=== PATIENT | female | born 1970 | race Caucasian/White ===

== ENCOUNTER 2017-06-08 23:57 | Emergency (ER) | payer BC ==
[2017-06-09] MEDS ORDERED: SODIUM CHLORIDE 0.9% 500 ML IV STA (00:08)
--- NOTE | 2017-06-09 00:17 | ED ---
General Adult HPI - General Source: patient, RN notes reviewed, old records reviewed Mode of arrival: ambulatory Limitations: no limitations <Paulie Sheffield - Last Filed: 06/09/17 00:15> <Gerardo Sanchez - Last Filed: 06/09/17 02:30> - General Chief complaint: Arrhythmia/Palpitations Stated complaint: Palpitations Time Seen by Provider: 06/09/17 00:08 - History of Present Illness Initial comments: This is a 38-year-old female to the ER for evaluation. Patient comes in for evaluation of palpitations fast heart rate. Patient has no significant history of heart disease or heart arrhythmia. No recent change in medications. No drugs or alcohol. No fevers. Patient states she recently did have a root canal is taking amoxicillin for dental infection. Patient states her heart rate Of 150s earlier today. Denies any symptoms of anxiety or stress. No chest pain or shortness of breath. Patient states that she was driving to emergency room she felt like her symptoms improve (Paulie Sheffield) - Related Data Home Medications Medication Instructions Recorded Confirmed Amoxicillin 500 mg PO Q8H 06/09/17 06/09/17 Ibuprofen [Motrin] 600 mg PO Q6HR PRN 06/09/17 06/09/17 Allergies Allergy/AdvReac Type Severity Reaction Status Date / Time sulfamethoxazole Allergy Rash/Hives Verified 06/09/17 00:04 [From Bactrim] trimethoprim [From Bactrim] Allergy Rash/Hives Verified 06/09/17 00:04 vancomycin Allergy Itching Verified 06/09/17 00:04 Review of Systems ROS Other: All systems not noted in ROS Statement are negative. <Paulie Sheffield - Last Filed: 06/09/17 00:15> ROS Other: All systems not noted in ROS Statement are negative. <Gerardo Sanchez - Last Filed: 06/09/17 02:30> ROS Statement: Those systems with pertinent positive or pertinent negative responses have been documented in the HPI. Past Medical History Past Medical History: No Reported History History of Any Multi-Drug Resistant Organisms: None Reported Past Surgical History: Section, Cholecystectomy Past Psychological History: No Psychological Hx Reported Smoking Status: Never smoker Past Alcohol Use History: None Reported Past Drug Use History: None Reported <Paulie Sheffield - Last Filed: 06/09/17 00:15> General Exam Limitations: no limitations General appearance: alert, in no apparent distress, anxious Head exam: Present: atraumatic, normocephalic, normal inspection Eye exam: Present: normal appearance, PERRL, EOMI. Absent: scleral icterus, conjunctival injection, periorbital swelling ENT exam: Present: normal exam, mucous membranes moist Neck exam: Present: normal inspection. Absent: tenderness, meningismus, lymphadenopathy Respiratory exam: Present: normal lung sounds bilaterally. Absent: respiratory distress, wheezes, rales, rhonchi, stridor Cardiovascular Exam: Present: regular rate, normal rhythm, normal heart sounds. Absent: systolic murmur, diastolic murmur, rubs, gallop, clicks GI/Abdominal exam: Present: soft, normal bowel sounds. Absent: distended, tenderness, guarding, rebound, rigid Extremities exam: Present: normal inspection, full ROM, normal capillary refill. Absent: tenderness, pedal edema, joint swelling, calf tenderness Back exam: Present: normal inspection Neurological exam: Present: alert, oriented X3, CN II-XII intact Psychiatric exam: Present: normal affect, normal mood Skin exam: Present: warm, dry, intact, normal color. Absent: rash <Paulie Sheffield - Last Filed: 06/09/17 00:15> EKG Findings - EKG Comments: EKG Findings:: EKG shows sinus rhythm with supraventricular complexes, rate of 95, OH 144, QRS 84, QTc 475 <Paulie Sheffield - Last Filed: 06/09/17 00:15> Medical Decision Making - Lab Data Result diagrams: 06/09/17 01:00 06/09/17 01:00 <Gerardo Sanchez - Last Filed: 06/09/17 02:30> - Lab Data Lab Results 06/09/17 06/09/17 06/09/17 Range/Units 00:26 01:00 01:00 WBC 5.1 (3.8-10.6) k/uL RBC 4.08 (3.80-5.40) m/uL Hgb 12.5 (11.4-16.0) gm/dL Hct 38.0 (34.0-46.0) % MCV 93.2 (80.0-100.0) fL MCH 30.6 (25.0-35.0) pg MCHC 32.8 (31.0-37.0) g/dL RDW 13.9 (11.5-15.5) % Plt Count 222 (150-450) k/uL Neutrophils % 65 % Lymphocytes % 24 % Monocytes % 6 % Eosinophils % 3 % Basophils % 1 % Neutrophils # 3.3 (1.3-7.7) k/uL Lymphocytes # 1.2 (1.0-4.8) k/uL Monocytes # 0.3 (0-1.0) k/uL Eosinophils # 0.1 (0-0.7) k/uL Basophils # 0.0 (0-0.2) k/uL PT 10.3 (9.0-12.0) sec INR 1.0 (<1.2) APTT 26.4 (22.0-30.0) sec Sodium (137-145) mmol/L Potassium (3.5-5.1) mmol/L Chloride (98-107) mmol/L Carbon Dioxide (22-30) mmol/L Anion Gap mmol/L BUN (7-17) mg/dL Creatinine (0.52-1.04) mg/dL Est GFR (MDRD) Af Amer (>60 ml/min/1.73 sqM) Est GFR (MDRD) Non-Af (>60 ml/min/1.73 sqM) Glucose (74-99) mg/dL Calcium (8.4-10.2) mg/dL Phosphorus (2.5-4.5) mg/dL Magnesium (1.6-2.3) mg/dL Total Bilirubin (0.2-1.3) mg/dL AST (14-36) U/L ALT (9-52) U/L Alkaline Phosphatase (38-126) U/L Total Creatine Kinase (30-135) U/L CK-MB (CK-2) (0.0-2.4) ng/mL CK-MB (CK-2) Rel Index Troponin I (0.000-0.034) ng/mL Total Protein (6.3-8.2) g/dL Albumin (3.5-5.0) g/dL TSH (0.465-4.680) mIU/L Urine Color Colorless Urine Appearance Clear (Clear) Urine pH 6.5 (5.0-8.0) Ur Specific [place] 1.001 (1.001-1.035) Urine Protein Negative (Negative) Urine Glucose (UA) Negative (Negative) Urine Ketones Negative (Negative) Urine Blood Trace H (Negative) Urine Nitrite Negative (Negative) Urine Bilirubin Negative (Negative) Urine Urobilinogen <2.0 (<2.0) mg/dL Ur Leukocyte Esterase Negative (Negative) Urine RBC 1 (0-5) /hpf Urine WBC <1 (0-5) /hpf Urine Mucus Rare H (None) /hpf 06/09/17 06/09/17 Range/Units 01:00 01:00 WBC (3.8-10.6) k/uL RBC (3.80-5.40) m/uL Hgb (11.4-16.0) gm/dL Hct (34.0-46.0) % MCV (80.0-100.0) fL MCH (25.0-35.0) pg MCHC (31.0-37.0) g/dL RDW (11.5-15.5) % Plt Count (150-450) k/uL Neutrophils % % Lymphocytes % % Monocytes % % Eosinophils % % Basophils % % Neutrophils # (1.3-7.7) k/uL Lymphocytes # (1.0-4.8) k/uL Monocytes # (0-1.0) k/uL Eosinophils # (0-0.7) k/uL Basophils # (0-0.2) k/uL PT (9.0-12.0) sec INR (<1.2) APTT (22.0-30.0) sec Sodium 141 (137-145) mmol/L Potassium 3.7 (3.5-5.1) mmol/L Chloride 110 H (98-107) mmol/L Carbon Dioxide 20 L (22-30) mmol/L Anion Gap 11 mmol/L BUN 14 (7-17) mg/dL Creatinine 0.70 (0.52-1.04) mg/dL Est GFR (MDRD) Af Amer >60 (>60 ml/min/1.73 sqM) Est GFR (MDRD) Non-Af >60 (>60 ml/min/1.73 sqM) Glucose 108 H (74-99) mg/dL Calcium 8.9 (8.4-10.2) mg/dL Phosphorus 3.5 (2.5-4.5) mg/dL Magnesium 2.0 (1.6-2.3) mg/dL Total Bilirubin 0.4 (0.2-1.3) mg/dL AST 26 (14-36) U/L ALT 31 (9-52) U/L Alkaline Phosphatase 79 (38-126) U/L Total Creatine Kinase 199 H (30-135) U/L CK-MB (CK-2) 2.6 H* (0.0-2.4) ng/mL CK-MB (CK-2) Rel Index 1.3 Troponin I <0.012 (0.000-0.034) ng/mL Total Protein 6.7 (6.3-8.2) g/dL Albumin 3.6 (3.5-5.0) g/dL TSH 3.020 (0.465-4.680) mIU/L Urine Color Urine Appearance (Clear) Urine pH (5.0-8.0) Ur Specific [place] (1.001-1.035) Urine Protein (Negative) Urine Glucose (UA) (Negative) Urine Ketones (Negative) Urine Blood (Negative) Urine Nitrite (Negative) Urine Bilirubin (Negative) Urine Urobilinogen (<2.0) mg/dL Ur Leukocyte Esterase (Negative) Urine RBC (0-5) /hpf Urine WBC (0-5) /hpf Urine Mucus (None) /hpf Disposition <Paulie Sheffield - Last Filed: 06/09/17 00:15> <Gerardo Sanchez - Last Filed: 06/09/17 02:30> Clinical Impression: Palpitations Disposition: HOME SELF-CARE Condition: Good Instructions: Palpitations (ED) Referrals: Ani Strauss MD [Primary Care Provider] - 1-2 days Erlin Kramer MD [STAFF PHYSICIAN] - 1-2 days
[2017-06-09 00:18] VITALS: RESP 16
[2017-06-09 01:06] LABS: Appearance,Urine Clear (Clear); Bilirubin,Urine Negative (Negative); Glucose,Urine (UA) Negative (Negative); Ketones,Urine Negative (Negative); Leukocyte Esterase,Urine Negative (Negative); Mucus,Urine Rare /hpf; Nitrite,Urine Negative (Negative); PH, Urine 6.5 (5.0-8.0); Particle Count 310; Protein,Urine Negative (Negative); RBC,Urine 1 /hpf (0-5); Specific Gravity,Urine 1.001 (1.001-1.035); UA Billing (MACRO vs. MICRO) MICRO; Urobilinogen,Urine <2.0 mg/dL (<2.0); WBC,Urine <1 /hpf (0-5)
[2017-06-09 01:15] LABS: Basophils % (A) 1 %; CH 31.5; CHCM 33.9; Eosinophils # (A) 0.1 k/uL (0-0.7); Eosinophils % (A) 3 %; HDW 2.67; HGB 12.5 gm/dL (11.4-16.0); Luc # (Auto) 0.07; Luc % (Auto) 1; Lymphocytes # (A) 1.2 k/uL (1.0-4.8); Lymphocytes % (A) 24 %; MCH 30.6 pg (25.0-35.0); MCHC 32.8 g/dL (31.0-37.0); MCV 93.2 fL (80.0-100.0); Mean Platelet Volume 7.9; Monocytes # (A) 0.3 k/uL (0-1.0); Monocytes % (A) 6 %; Neutrophils # (A) 3.3 k/uL (1.3-7.7); Neutrophils % (A) 65 %; RBC 4.08 m/uL (3.80-5.40); RDW 13.9 % (11.5-15.5); WBC 5.1 k/uL (3.8-10.6); WBC (Perox) 4.65
[2017-06-09 01:24] LABS: Partial Thromboplastin Time 26.4 sec (22.0-30.0); Prothrombin Time 10.3 sec (9.0-12.0)
[2017-06-09 01:52] LABS: ALT 31 U/L (9-52); AST 26 U/L (14-36); Alkaline Phosphatase 79 U/L (38-126); Anion Gap 11 mmol/L; Blood Urea Nitrogen 14 mg/dL (7-17); Calcium 8.9 mg/dL (8.4-10.2); Carbon Dioxide 20 mmol/L (22-30); Chloride 110 mmol/L (98-107); Creatine Kinase 199 U/L (30-135); Glucose 108 mg/dL (74-99); Non-African American GFR(MDRD) >60 (>60 ml/min/1.73 sqM); Phosphorus 3.5 mg/dL (2.5-4.5); Potassium 3.7 mmol/L (3.5-5.1); Sodium 141 mmol/L (137-145); Total Bilirubin 0.4 mg/dL (0.2-1.3); Total Protein 6.7 g/dL (6.3-8.2)
[2017-06-09 02:04] LABS: Troponin I <0.012 ng/mL (0.000-0.034)
[2017-06-09 02:06] LABS: Creatine Kinase MB 2.6 ng/mL (0.0-2.4)
[2017-06-09 02:56] VITALS: BP 155/80; PULSE 88; TEMP 98
== END 2017-06-09 02:56 | disposition home or self-care (01) ==
LOC: EC 23:57
DX: R00.2 Palpitations (principal); Z88.1 Allergy status to other antibiotic agents; Z88.2 Allergy status to sulfonamides
CPT/HCPCS: 36415; 80053; 81001; 82550; 82553; 83735; 84100; 84443; 84484; 85025; 85610; 85730; 93005; 99285